=== PATIENT | female | born 1965 | race Caucasian/White ===

== ENCOUNTER → 2021-10-20 10:21 | Outpatient (BNVA) | payer MEDICARE, MEDICAID, SELFPAY | PROVIDERS: PCP Pediatrics; Visit Provider Student in an Organized Health Care Education/Training Program | DX: M79.7 Fibromyalgia (principal); M18.11 Unilateral primary osteoarthritis of first carpometacarpal joint, right hand | CPT/HCPCS: 99202 ==

== ENCOUNTER 2023-08-22 14:00 | Outpatient (AMB) | payer MEDICARE, MEDICAID, SELFPAY ==
--- NOTE | 2023-08-22 14:03 | A.OFFVIS_ITS ---
Vital Signs 08/22/23 14:17 Height 5 ft 6 in Weight 195 lb 5.273 oz BMI 31.5 BP 120/70 Blood Pressure Location Lt brachial Position Sitting Pulse 78 Pulse Source Pulse Oximeter Pulse Oximetry (%) 99 Oxygen Delivery Method Room Air Intake Visit Reasons: FM/CM Intake Note: Patient presents for FM/CM. Fibromyalgia is getting worst. Chronic headaches are constant. Shooting pains down my legs. I get vertigo sometimes Allergies oxycodone [From PERCOCET] Allergy (Unknown, Verified 08/22/23 14:13) UNKNOWN duloxetine [From Cymbalta] Adverse Reaction (Intermediate, Verified 08/22/23 14:13) Migraine pregabalin [From Lyrica] Adverse Reaction (Intermediate, Verified 08/22/23 14:13) Weight gain Medication List - Last Reconciled 08/22/23 by Luis Cardoza MD bupropion HCl XL (Wellbutrin XL) 150 mg PO bupropion HCl XL (Wellbutrin XL) 300 mg PO cholecalciferol (vitamin D3) (Vitamin D3) 50 mcg PO DAILY diazepam 5 mg PO DAILY diazepam 2 mg PO DAILY fluvoxamine 200 mg PO ONCE pregabalin 50 mg PO BEDTIME propranolol mg PO HPI Comments Details: 57-year-old female with fibromyalgia and osteoarthritis returns for follow-up. She states that her fibromyalgia is worse and she is frustrated with her condition. She needs to take pregabalin nightly. She takes 50 mg nightly which provides some relief, takes the edge off but it causes significant hunger. She even tried taking the 50 mg capsule and taking half of it and it still causes hunger and weight gain. She also had side effects with gabapentin and duloxetine. She requested Savella prescription from her psychiatrist and it was denied. Patient walks her dog daily. She has a therapist but does not feel the therapy is helpful. Initial history: 55-year-old female referred for evaluation of fibromyalgia. She was diagnosed about a year ago. She was started on Lyrica which gave her some relief but caused significant weight gain so it was stopped. She was also started on duloxetine which made her migraines worse. Also she was on gabapentin years ago for migraine which also caused weight gain. She has severe pain everywhere helped with Tylenol and sometimes ibuprofen. She has difficulty falling asleep and sometimes has restless legs. Both are helped with melatonin 3-6 mg at night. She has significant anxiety. Patient also has significant right hand CMC arthritis and fusion was recommended by hand surgeon. She also has bilateral knee pain worse with walking, she had right knee arthroscopic meniscal surgery and she was told she needs similar treatment on the left side as well. [facility] Medical History Essential hypertension Anorexia nervosa Fibromyalgia, primary Migraine Depression Surgical History H/O wrist surgery History of tonsillectomy and adenoidectomy H/O lateral meniscus repair of right knee Hx of hernia repair Hx of section History of back surgery Family History Mother Lupus Anxiety and depression Hypertension Father Congestive heart failure Social History Household Members: Children Alcohol intake: never Patient Tobacco Use Status: Never used Tobacco Current occupational status: disabled Female Reproductive History Menstrual Total pregnancies: 1 Full term: 1 Review of Systems Musc Reports myalgias and Reports arthralgias Physical Exam Vital Signs: Last Vital Signs Pulse 78 08/22/23 14:17 BP 120/70 08/22/23 14:17 Pulse Ox 99 08/22/23 14:17 Oxygen Delivery Method Room Air 08/22/23 14:17 BMI result Body Mass Index 31.5 Const General: cooperative and healthy appearing Nutritional Appearance: overweight Orientation/consciousness: patient oriented x3 HEENT Head: Yes normocephalic and Yes atraumatic Ears: hearing grossly normal bilaterally Mouth: Normal oral and palatal mucosa present and moist mucous membranes Resp Effort & Inspection: normal respiratory effort and able to speak in complete sentences Neuro General: patient oriented x3 Extrem Other: No active synovitis Diffuse fibromyalgia tender points Assessment & Plan Assessment & Plan (1) Fibromyalgia, primary: Code(s): M79.7 - Fibromyalgia Category: Medical Plan: 57-year-old female with fibromyalgia returns for follow-up. Upon evaluation I do not see any signs suggestive of an autoimmune rheumatic disease. I again outlined the general management strategies for fibromyalgia. Consider changing her therapist. Try to follow sleep hygiene practices. Patient had a home sleep study and a lab sleep study was suggested but patient not get a chance to go. Advised patient to get a sleep study to rule out PATRICK.Patient would benefit from increased physical activity, either through formal physical therapy or by joining a gym. Advised patient that she should start activity slowly and increase as tolerated. Consider low-impact exercises such as swimming, aqua therapy stretching, yoga. Patient had side effects with gabapentin and Cymbalta. She takes 50 mg of Lyri ca which helps keep the edge off but can not increase the dose due to significant her and weight gain Discuss with PCP or psychiatrist. Consider adding Savella Advised patient to look up mind your fibro podcast No need to follow up with me Plan I spent 30 minutes reviewing patient's chart, evaluating patient, counseling patient and documenting in the chart Coding Level of Care Code Est Pt Level 3 (53118) Diagnoses Fibromyalgia, primary M79.7
[2023-08-22 14:17] VITALS: BP 120/70; PULSE 78; O2SAT 99; BMI 31.5
== END 2023-08-22 14:47 | disposition home or self-care (01) ==
PROVIDERS: PCP Pediatrics; Visit Provider Student in an Organized Health Care Education/Training Program
DX: M79.7 Fibromyalgia (principal)
CPT/HCPCS: 99213

== ENCOUNTER → 2023-08-22 14:00 | Outpatient (BNVA) | payer MEDICARE, MEDICAID, SELFPAY | PROVIDERS: PCP Pediatrics; Visit Provider Student in an Organized Health Care Education/Training Program | DX: M79.7 Fibromyalgia (principal); Z79.899 Other long term (current) drug therapy | CPT/HCPCS: 99212 ==

== ENCOUNTER → 2024-06-24 11:02 | Outpatient (REF) | payer MEDICARE, MEDICAID, SELFPAY ==
--- OUTSIDE RECORDS SUMMARY | 2024-06-24 12:30 | XMS_ITS | Clinical Summary ---
Author Organization [facility] [address] [place] [address] [address] [place] [address] Phone Care Team Providers [employer] Name Role Phone Farzana Garrett MD Primary Care Provider [phone] Allergies Active Allergy Reactions Criticality Noted Date Comments Cephalexin Monohydrate 10/29/2012 unknown Chlorpromazine Hallucinations 12/31/2018 Taken for nausea Erythromycin 11/13/2012 unknown Oxycodone-Acetaminophen Dizziness 04/13/2022 Pollen Extracts 03/14/2011 Other Reaction(s): Runny Nose/Rhinitis Medications acetaminophen (TYLENOL 8 HOUR) 650 mg 8 hr tablet TAKE 1 TABLET BY MOUTH EVERY 8 HOURS NEEDED FOR PAIN 09/07/2023 Active atomoxetine (STRATTERA) 40 mg capsule Take 60 mg by mouth daily. Active buPROPion XL (WELLBUTRIN XL) 150 mg 24 hr tablet Take 150 mg by mouth every morning. Take along with a 300mg tab= 450mg daily Active buPROPion XL (WELLBUTRIN XL) 300 mg 24 hr tablet Take 300 mg by mouth every morning. Take along with 150mg tab = total 450mg Active cholecalciferol (VITAMIN D-3) 50 mcg (2,000 unit) tablet Take 1 Tablet by mouth daily. 06/05/2023 Active diazePAM (VALIUM) 2 mg tablet Take 2 Tablets by mouth 2 times daily as needed. Active diazePAM (VALIUM) 5 mg tablet Take 5 mg by mouth at bedtime. Active fluvoxaMINE 150 mg capsule,extende d release 24hr Take 1.3333 Capsules by mouth. Active ibuprofen (ADVIL,MOTRIN) 800 mg tablet TAKE 1 TABLET BY MOUTH EVERY 8 HOURS NEEDED FOR PAIN 08/14/2023 Active propranoloL (INDERAL) 80 mg tablet Take 1 Tablet by mouth 3 times daily. Active omeprazole (PriLOSEC) [address] capsule TAKE 1 CAPSULE BY MOUTH EVERY DAY 30 capsule 3 01/23/2024 Active Active Problems Problem Noted Date Diagnosed Date Dizziness 05/21/2024 Snoring 06/02/2022 Overview (12/04/2023): Sleep study neg. 06/04 Arthritis of carpometacarpal (CMC) joint of righ t thumb 01/24/2022 Fibromyalgia 03/25/2021 Dyspnea on exertion 03/16/2021 Tachycardia 03/16/2021 Vitamin D deficiency 02/25/2020 Brief psychotic disorder ([facility] V24, [facility] V 28) 06/26/2016 Essential hypertension 06/29/2011 Anxiety 03/14/2011 Depression 03/14/2011 Insomnia 03/14/2011 Migraine 03/14/2011 Encounters Date Type Department Care Team Description 06/11/2024 12:10 PM EDT - 06/11/2024 11:59 PM EDT Hospital Encounter [facility] MRI [address] [place] [address] Syncope and collapse Discharge Disposition: Home or Self Care 06/03/2024 Telephone Adult Medicine [facility] [address] [place] [phone] Delia Golden MA Fitting for DME 05/21/2024 1:30 PM EDT Office Visit Adult Medicine [facility] [address] [place] [phone] Lana Cruz NP Essential hypertension (Primary Dx); Dizziness from Last 3 Months Immunizations Name Administration Dates Next Due Hep B, Unspecified 01/12/2012 Influenza Quadravalent, MDCK , 0.5ml, preservative free (Flucelvax) 6mo and older 11/08/2021,10/29/2020,12/31/2018 Influenza Quadrivalent, 0.5m l, preservative free (Fluarix; FluLaval; Fluzone) ages 6mo and older (Afluria) 3yo and older 12/16/2019,02/19/2018,10/31/2016 Influenza trivalent, 0.5mL, preservative free (Fluarix; FluLaval; Fluzone) ages 6mo and older (Afluria) 3 years and older 02/14/2018,01/29/2015 Influenza, Unspecified 10/31/2016 Measles 01/12/2012 Mumps 01/12/2012 Pfizer SARS-CoV-2 COVID-19, mRNA, LNP-S, preservative free 07/02/2020,06/12/2020 Rubella 01/12/2012 Tdap Tetanus diptheria acell ular pertussis (Boostrix; Adacel) 7yo and older 01/11/2015,01/12/2012 Varicella live (Varivax) 12mo and older 01/12/20 12 Surgical History Surgery Date Site/Laterality Comments HERNIA REPAIR 2013 PROCEDURE: HISTORICAL HERNIA REPAIR/ELISHA SECTION 1999 PROCEDURE: HISTORICAL DELIVERY BACK SURGERY 2018 PROCEDURE: HISTORICAL BACK SURGERY; COMMENT: L5-S1 KNEE ARTHROSCOPY W/ MENISCAL REPAIR Right PROCEDURE: RI ARTHROSCOPY KNEE W/MENISCUS RPR MEDIAL/LATERAL TONSILLECTOMY ADENOIDECTOMY, BILATERAL MYRINGOTOMY AND TUBES PROCEDURE: RI TONSILLECTOMY & ADENOIDECTOMY <AGE 12 HERNIA REPAIR PROCEDURE: RI RPR 1ST INGUN HRNA AGE 6 MO-5 YRS REDUCIBLE Medical History Medical History Date Comments Anxiety 03/14/2011 DX:Anxiety Depressive disorder, not els ewhere classified 03/14/2011 DX:Depressive disorder, not elsewhere classified Migraine 03/14/2011 DX:Migraine Insomnia 03/14/2011 DX:Insomnia H/O: section 04/27/2011 DX:H/O: ce sarean section History of suicidal ideation 02/09/2017 DX: History of suicidal ideation S/P lumbar fusion 06/10/2018 DX:S/P lumbar fusion Esophageal reflux DX:Esophageal reflux Essential hypertension DX:Essent ial hypertension Urinary tract infection DX:Urina ry tract infection Family History Medical History Relation Name Comments Heart attack Father age 50s, hx CHF Arthritis Mother Depression Mother Hypertension Mother Other: lupus Mother Stroke Mother Heart attack Paternal Grandfather age 50s Arthritis Sister Relation Name Status Comments Father (Age 77) [place] Mother (Age 57) lupus Paternal Grandfather Sister Social History Tobacco Use Types Packs/Day Years Used Date Smoking Tobacco: Never Smokeless Tobacco: Never Tobacco Cessation:Counseling Given: Not Answered Alcohol Use Standard Drinks/Week Comments No 0 (1 standard drink = 0.6 oz pur e alcohol) Comments Unknown Sex and Gender Information Value Date Recorded Sex Assigned at Not on file Legal Sex Female 11:02 PM EST Gender Identity Not on file Sexual Orientation Not on file Obstetrics History Last Filed Vital Signs Vital Sign Reading Time Taken Comments Blood Pressure 128/79 05/21/2024 1:37 PM EDT Pulse 67 05/21/2024 1:37 PM EDT Temperature - - Respiratory Rate - - Oxygen Saturation - - Inhaled Oxygen Concentration - - Weight 78.2 kg (172 lb 6.4 oz) 05/21/2024 1:37 P M EDT Height 167.6 cm (5' 6 ) 05/21/2024 1:37 PM EDT Body Mass Index 27.83 05/21/2024 1:37 PM EDT Plan of Treatment Upcoming Encounters Date Type Department Care Team (Late st Contact Info) Description 07/15/2024 9:40 AM EDT Office Visit Endocrinology - [facility] [address] [place] [phone] Simin Steen PA [address] [place] [address] Health Maintenance Due Date Last Done Comments Hepatitis B Vaccines (2 of 3 - 19+ 3-dose series) 02/09/2012 01/12/2012 Pneumococcal Vaccine: 50+ Years (1 of 1 - PCV) 2016 Zoster Vaccines (1 of 2) 2016 01/12/2012 Colorectal Cancer Screening: Stool Based Tests (FOBT/FIT) 01/21/2022 Depression Screening 01/21/2022 Medicare Annual Wellness Visit 01/21/2022 Social Influencers of Health Screening 01/21/2022 DTaP,Tdap,and Td Vaccines (3 - Td or Tdap) 01/11/2025 01/11/2015, 01/12/2012 Breast Cancer Screening 02/23/2025 02/23/2023, 12/26 Hypertension/CHF/CAD Annual BMP Blood Test 05/21/2025 05/21/2024, 06/05/2023 Cholesterol Screening (Lipid Panel) 09/14/2026 09/14/2021 Cervical Cancer Screening: HPV 11/16/2027 11/15/2022 HIV Screening Completed 06/27/2011 Hepatitis C Screening Completed 06/27/2011 Varicella Vaccines Aged Out 01/12/2012 No longer eligible based on patient's age to complete this topic COVID-19 Vaccine Completed 01/30/2024, , 11/17/2021, Additional history exists Influenza Vaccine Completed 01/30/2024, , 11/08/2021, Additional history exists HIB Vaccines Aged Out No longer eligi ble based on patient's age to complete this topic HPV Vaccines Aged Out No longer eligi ble based on patient's age to complete this topic Hepatitis A Vaccines Aged Out No long er eligible based on patient's age to complete this topic IPV Vaccines Aged Out No longer eligi ble based on patient's age to complete this topic MMR Vaccines Aged Out No longer eligi ble based on patient's age to complete this topic Meningococcal ACWY Vaccine Aged Out N o longer eligible based on patient's age to complete this topic Meningococcal B Vaccine Aged Out No l onger eligible based on patient's age to complete this topic Pneumococcal Vaccine: Pediatrics (0 to 5 Years) and At-Risk Patients (6 to 64 Years) Aged Out No longer eligible based on patient's age to complete this topic RSV Immunization Patients Under 20 months Aged Out No longer eligible based on patient's age to complete this topic Procedures Procedure Name Priority Date/Time Associated Diagnosis Comments MR BRAIN WO CONTRAST Routine 06/11/2024 1:06 PM EDT Syncope and collapse CBC WITH AUTO DIFFERENTIAL Routine 05/21/2024 12:58 PM EDT Syncope and collapse COMPREHENSIVE METABOLIC PANEL Routine 05/21/2024 12:58 PM EDT Syncope and collapse CBC AND DIFFERENTIAL Routine 05/21/2024 12:58 PM EDT Syncope and collapse THYROID STIMULATING HORMONE WITH REFLEX TO FREE T4 AND FREE T3 Routine 05/21/2024 12:58 PM EDT Syncope and collapse SCREENING MAMMOGRAPHY BI 2-VIEW BREAST INC CAD Routine 02/23/2023 10:30 AM EST Encounter for other screening for malignant neoplasm of breast HPV Routine 11/15/2022 LIPID PANEL Routine 09/14/2021 HEPATITIS C SCREENING Routine 06/27/2011 HIV SCREENING Routine 06/27/2011 from Last 3 Months or Most Recently Relevant to Health Maintenance Results * MR Brain wo Contrast (06/11/2024 1:06 PM EDT) Anatomical Region Laterality Modality Head and Neck Magnetic Resonan ce 06/11/2024 1:45 PM EDT Impressions 06/11/2024 2:00 PM EDT No acute findings. ??Stable exam compared to 2023. -------- FINAL REPORT -------- Dictated By: CONOR QUINTERO Dictated Date: 06/11/2024 13:45 ET Assigned Physician: CONOR QUINTERO Reviewed and Electronically Signed By: CONOR QUINTERO Signed Date: 06/11/2024 14:00 ET Workstation ID: [id number] Transcribed By: Self Edit Transcribed Date: 06/11/2024 13:45 ET Narrative 06/11/2024 2:00 PM EDT PROCEDURE: Brain MRI INDICATION: Syncope TECHNIQUE: Multiplanar, multisequence MRI of the brain Without contrast. COMPARISON: ??04/26/2023. FINDINGS: No acute infarct, mass effect, or intracranial hemorrhage. Mild nonspecific T2 hyperintense foci throughout the supratentorial and pontine white matter are stable compared to prior and likely related to chronic small vessel ischemic change. Sella and foramen magnum are normal. ??No abnormal intracranial susceptibility artifact. Ventricles, sulci, and cisterns are normal in size and configuration. ??No hydrocephalus. Major intracranial arterial flow voids are normal. Sinuses and mastoid air cells are clear. Orbits and extracranial soft tissues are normal. ??Calvarium is normal. Procedure Note Conor Quintero MD - 06/11/2024 PROCEDURE: Brain MRI INDICATION: Syncope TECHNIQUE: Multiplanar, multisequence MRI of the brain Without contrast. COMPARISON: 04/26/2023. FINDINGS: No acute infarct, mass effect, or intracranial hemorrhage. Mild nonspecific T2 hyperintense foci throughout the supratentorial andpontine white matter are stable compared to prior and likely related tochronic small vessel ischemic change. Sella and foramen magnum are normal. No abnormal intracranialsusceptibility artifact. Ventricles, sulci, and cisterns are normal in size and configuration. Nohydrocephalus. Major intracranial arterial flow voids are normal. Sinuses and mastoid air cells are clear. Orbits and extracranial soft tissues are normal. Calvarium is normal. IMPRESSION: No acute findings. Stable exam compared to 2023. -------- FINAL REPORT -------- Dictated By: CONOR QUINTERO Dictated Date: 06/11/2024 13:45 ET Assigned Physician: CONOR QUINTERO Reviewed and Electronically Signed By: CONOR QUINTERO Signed Date: 06/11/2024 14:00 ET Workstation ID: [id number] Transcribed By: Self Edit Transcribed Date: 06/11/2024 13:45 ET Tana Woodward NP IMG MRI PROCEDURES Final Result * Thyroid stimulating hormone with reflex to free t4 and free t3 (05/21/2024 12:58 PM EDT) TSH 3.07 0.40 - 4.00 mcIU/mL LAB CHEMISTRY METHOD 05/22/2024 4:[address] [facility] Blood Venous blood specimen / Unknown Venipuncture / Unknown 05/21/2024 12:58 PM EDT 05/21/2024 12:58 PM EDT Tana Woodward NP LAB BLOOD ORDERABLES Ludmila l Result [facility] [address] [place] [address], * CBC auto differential (05/21/2024 12:58 PM EDT) [facility] WBC 6.4 4.8 - 10.8 K/mcL LAB HEMETOLOGY METHOD 05/21/2024 2:[address] [facility] RBC 4.40 3.80 - 4.80 M/mcL LAB HEMETOLOGY METHOD 05/21/2024 2:[address] [facility] Hemoglobin 13.4 11.5 - 16.0 g/dL LAB HEMETOLOGY METHOD 05/21/2024 2:[address] [facility] Hematocrit 40.7 35.0 - 47.0 % LAB HEMETOLOGY METHOD [facility]24 [facility] MCV 91.9 79.0 - 98.0 FL LAB HEMETOLOGY METHOD 05/21/2024 2:[address] [facility] MCH 30.2 27.0 - 32.0 pcg LAB HEMETOLOGY METHOD 05/21/2024 2:[facility] MCHC 32.9 32.0 - 37.0 g/dL LAB HEMETOLOGY METHOD 05/21/2024 2:[address] [facility] RDW 12.2 11.0 - 15.0 % LAB HEMETOLOGY METHOD 05/21/2024 2:[address] [facility] Platelets 324 130 - 400 K/mcL LAB HEMETOLOGY METHOD 05/21/2024 2:[address] [facility] MPV 10.5 7.0 - 11.0 FL LAB HEMETOLOGY METHOD 05/21/2024 2:[address] [facility] NRBC 0.0 <1.0 % LAB HEMETOLOGY METHOD 05/21/2024 2:[address] [facility] NRBC Absolute 0.00 <0.10 K/mcL LAB HEMETOLOGY METHOD 05/21/2024 2:[address] [facility] Neutrophils Relative 52.5 % LAB HEMETOLOGY METHOD 05/21/2024 2:[facility] Lymphocytes Relative 31.9 % LAB HEMETOLOGY METHOD 05/21/2024 2:[facility] Monocytes Relative 9.5 % LAB HEMETOLOGY METHOD 05/21/2024 2:[facility] Eosinophils Relative 5.3 % LAB HEMETOLOGY METHOD 05/21/2024 2:[address] [facility] Basophils Relative 0.6 % LAB HEMETOLOGY METHOD 05/21/2024 2:[address] [facility] Immature Granulocytes Relative 0.2 % LAB HEMETOLOGY METHOD 05/21/2024 2:[address] [facility] Neutrophils Absolute 3.36 1.50 - 7.00 K/mcL LAB HEMETOLOGY METHOD 05/21/2024 2:[address] [facility] Lymphocytes Absolute 2.04 1.00 - 5.00 K/mcL LAB HEMETOLOGY METHOD 05/21/2024 2:[address] [facility] Monocytes Absolute 0.61 0.20 - 1.00 K/mcL LAB HEMETOLOGY METHOD 05/21/2024 2:[facility] Eosinophils Absolute 0.34 0.00 - 0.50 K/mcL LAB HEMETOLOGY METHOD 05/21/2024 2:[address] [facility] Basophils Absolute 0.04 0.00 - 0.20 K/mcL LAB HEMETOLOGY METHOD 05/21/2024 2:[facility] Immature Granulocytes Absolute 0.01 0.00 - 0.03 K/mcL LAB HEMETOLOGY METHOD 05/21/2024 2:[address] [facility] Blood Venous blood specimen / Unknown Venipuncture / Unknown 05/21/2024 12:58 PM EDT 05/21/2024 12:58 PM EDT us Tana Woodward NP LAB BLOOD ORDERABLES Ludmila l Result [facility] [address] [place] [address], [place] [phone] * (ABNORMAL) Comprehensive metabolic panel (05/21/2024 12:58 PM EDT) Sodium 137 133 - 145 mmol/L LAB CHEMISTRY METHOD 05/21/2024 4:[address] [facility] Potassium 5.8(H) 3.5 - 5.5 mmol/L LAB CHEMISTRY METHOD 05/21/2024 4:[address] [facility] Chloride 103 96 - 110 mmol/L LAB CHEMISTRY METHOD 05/21/2024 4:[address] [facility] CO2 29 21 - 32 mmol/L LAB CHEMISTRY METHOD 05/21/2024 4:[address] [facility] Anion Gap 5 3 - 11 LAB CHEMISTRY METHOD 05/21/2024 4:[address] [facility] Glucose 76 70 - 100 mg/dL LAB CHEMISTRY METHOD 05/21/2024 4:[address] [facility] BUN 19 5 - 25 mg/dL LAB CHEMISTRY METHOD 05/21/2024 4:[address] [facility] Creatinine 1.10 0.50 - 1.10 mg/dL LAB CHEMISTRY METHOD 05/21/2024 4:[address] [facility] eGFR 59(L) >=60 mL/min/1. 73m2 LAB CHEMISTRY METHOD 05/21/2024 4:[address] [facility] Comment:Calculation based on the??Chronic Kidney Disease Epidemiology Collaboration (CKD-EPI) equation refit??without adjustment for race. BUN/Creatinine Ratio 17.3 LAB CHEMISTRY METHOD 05/21/2024 4:[address] [facility] Calcium 9.7 8.5 - 10.5 mg/dL LAB CHEMISTRY METHOD 05/21/2024 4:[address] [facility] AST (SGOT) 22 10 - 42 unit/L LAB CHEMISTRY METHOD 05/21/2024 4:[address] [facility] ALT (SGPT) 33 10 - 60 unit/L LAB CHEMISTRY METHOD 05/21/2024 4:[address] [facility] Alkaline Phosphatase 95 42 - 121 unit/L LAB CHEMISTRY METHOD 05/21/2024 4:[address] [facility] Total Protein 7.7 6.0 - 8.0 g/dL LAB CHEMISTRY METHOD 05/21/2024 4:[address] [facility] Albumin 3.9 3.2 - 5.0 g/dL LAB CHEMISTRY METHOD 05/21/2024 4:[address] [facility] Total Bilirubin 0.3 0.0 - 1.4 mg/dL LAB CHEMISTRY METHOD 05/21/2024 4:[address] [facility] Blood Venous blood specimen / Unknown Venipuncture / Unknown 05/21/2024 12:58 PM EDT 05/21/2024 12:58 PM EDT us Tana Woodward NP LAB BLOOD ORDERABLES Ludmila landa Result [facility] [address] [place] [address], * SCREENING MAMMOGRAPHY BI 2-VIEW BREAST INC CAD (02/23/2023 10:30 AM EST) Anatomical Region Laterality Modality Radiographic Laurita ging 11/15/2022 4:25 PM EDT Narrative 02/23/2023 11:02 AM EST This is a summary report. The complete report is available in the patient's medical record. If you cannot access the medical record, please contact the sending organization for a detailed fax or copy. Full field digital screening tomosynthesis mammography, reviewed with CAD and compared to previous mammograms dating back to 07/12/2011 with most recent of 12/26/2017. The breasts are composed of fatty and fibroglandular tissue. ??No suspicious mass, architectural distortion or suspicious calcifications are identified. IMPRESSION: : No mammographic evidence of malignancy. BIRADS 1-Negative; N. 5 year breast cancer risk assessment N/A Lifetime breast cancer risk assessment N/A Breast cancer risk category Breast cancer risk not assessed Procedure Note Verna Marie MD - 10/01/2023 This is a summary report. The complete report is available in thepatient's medical record. If you cannot access the medical record, pleasecontact the sending organization for a detailed fax or copy. Full field digital screening tomosynthesis mammography, reviewed with CADand compared to previous mammograms dating back to 07/12/2011 with mostrecent of 12/26/2017. The breasts are composed of fatty and fibroglandulartissue. No suspicious mass, architectural distortion or suspiciouscalcifications are identified. IMPRESSION: : No mammographic evidence of malignancy. BIRADS 1-Negative; N. 5 year breast cancer risk assessment N/A Lifetime breast cancer risk assessment N/A Breast cancer risk category Breast cancer risk not assessed Latoya Little DO IMG XR PROCEDURES Final Resul t * Cervical Cancer Screening: HPV (11/15/2022) Pathologist [facility] Cervical Cancer Screening: HPV Negative, Abstracted Historical Provider HEALTH MAINTENANCE Final Result * (ABNORMAL) Lipid panel (09/14/2021) LDL/HDL Ratio 4 0 - 4 Triglycerides 114 0 - 150 mg/dL Cholesterol 219(A) 0 - 200 mg/dL HDL 57 >=40 mg/dL LDL Cholesterol 140(A) 0 - 100 mg/dL Blood Venous blood specimen / Unknown Historical Provider LAB BLOOD ORDERABLES Ludmila l Result * HIV Screening (06/27/2011) HIV Screening Abstracted Historical Provider HEALTH MAINTENANCE Final Result * Hepatitis C Screening (06/27/2011) Hepatitis C Screening Abstracted Historical Provider HEALTH MAINTENANCE Final Result from Last 3 Months or Most Recently Relevant to Health Maintenance Insurance MEDICARE [place]ICAID - [place] Care Teams [employer] Relationship Specialty Start Date End Date Farzana Garrett MD [address] [place] [phone] PCP - General Internal Medicine 10/25/20
== END ==
LOC: HO.CARD 11:02
PROVIDERS: PCP Pediatrics; Visit Provider Registered Nurse
DX: R55 Syncope and collapse (principal)
CPT/HCPCS: 93225

== ENCOUNTER 2024-09-15 09:51 | Outpatient (AMB) | payer MEDICARE, MEDICAID, SELFPAY ==
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
--- OUTSIDE RECORDS SUMMARY | 2024-09-15 10:27 | XMS_ITS | Clinical Summary ---
Author Organization [facility] [address] [place] [address] [address] [place] [address] Phone Care Team Providers Care Sharepoint Admin Name Role Phone Farzana Garrett MD Primary Care Provider [phone] Allergies Active Allergy Reactions Criticality Noted Date [...] Vitamin D deficiency 02/25/2020 Brief psychotic disorder ([facility] V24, [facility] V 28) 06/26/2016 Essential hypertension 06/29/2011 Anxiety 03/14/2011 Depression 03/14/2011 Insomnia 03/14/2011 Migraine 03/14/2011 Encounters Date Type Department Care Team Description 08/11/2024 Telephone Adult Medicine [facility] [address] [place] [address] Delia Golden MA Fitting for DME from Last 3 Months Immunizations Name Administration [...] Influenza, Unspecified 10/31/2016 Measles 01/12/2012 Mumps 01/12/2012 [facility] SARS-CoV-2 COVID-19, mRNA, LNP-S, preservative free 07/02/2020,06/12/2020 Rubella 01/12/2012 Tdap Tetanus diptheria acell ular pertussis (Boostrix; Adacel) 7yo and older 01/11/2015,01/12/2012 Varicella live (Varivax) 12mo and older 01/12/20 12 Surgical History Surgery Date Site/Laterality Comments HERNIA REPAIR 2013 PROCEDURE: HISTORICAL HERNIA REPAIR/ELISHA SECTION 1999 PROCEDURE: HISTORICAL DELIVERY BACK SURGERY 2018 PROCEDURE: HISTORICAL BACK SURGERY; COMMENT: L5-S1 KNEE ARTHROSCOPY W/ MENISCAL REPAIR Right PROCEDURE: SC ARTHROSCOPY KNEE W/MENISCUS RPR MEDIAL/LATERAL TONSILLECTOMY ADENOIDECTOMY, BILATERAL MYRINGOTOMY AND TUBES PROCEDURE: SC TONSILLECTOMY & ADENOIDECTOMY <AGE 13 HERNIA REPAIR PROCEDURE: SC RPR 1ST INGUN HRNA AGE 7 MO-5 [...] Relation Name Status Comments Father (Age 77) [place] Mother (Age 57) lupus Paternal Grandfather Sister [...] Care Team (Late st Contact Info) Description 01/27/2025 1:00 PM EST Office Visit Endocrinology - [place] [address] [place] [address] Simin Steen PA [address] [place] [address] Health Maintenance Due Date Last Done Comments Hepatitis B Vaccines (2 of 3 - 19+ 3-dose series) 02/09/2012 01/12/2012 Pneumococcal Vaccine: 50+ Years (1 of 1 - PCV) 2016 Zoster Vaccines (1 of 2) 2016 01/12/2012 Colorectal Cancer Screening: Stool Based Tests (FOBT/FIT) 01/21/2022 Medicare Annual Wellness Visit 01/21/2022 Social Influencers of Health Screening 01/21/2022 Depression Screening 02/13/2024 Influenza Vaccine (#1) 2024 , 03/04/2023, 11/08/2021, Additional history exists DTaP,Tdap,and Td Vaccines (3 - Td or Tdap) 01/11/2025 01/11/2015, 01/12/2012 Breast Cancer Screening 02/23/2025 02/23/2023, 12/26 Hypertension/CHF/CAD Annual BMP Blood Test 08/07/2025 08/07/2024, 05/21/2024, 06/05/2023 Cholesterol Screening (Lipid Panel) 09/14/2026 09/14/2021 Cervical Cancer Screening: HPV 11/16/2027 11/15/2022 HIV Screening Completed 06/27/2011 Hepatitis C Screening Completed 06/27/2011 Varicella Vaccines Aged Out 01/12/2012 No longer eligible based on patient's age to complete this topic COVID-19 Vaccine Completed 01/30/2024, , 11/17/2021, Additional history exists HIB Vaccines Aged Out [...] Procedure Name Priority Date/Time Associated Diagnosis Comments COMPREHENSIVE METABOLIC PANEL Routine 08/07/2024 3:26 PM EDT Syncope and collapse SCREENING MAMMOGRAPHY BI 2-VIEW BREAST INC CAD Routine 02/23/2023 10:30 AM EST Encounter for other screening for malignant neoplasm of breast HPV Routine 11/15/2022 LIPID PANEL Routine 09/14/2021 HEPATITIS C SCREENING Routine 06/27/2011 HIV SCREENING Routine 06/27/2011 from Last 3 Months or Most Recently Relevant to Health Maintenance Results * (ABNORMAL) Comprehensive metabolic panel (08/07/2024 3:26 PM EDT) Sodium 132(L) 133 - 145 mmol/L LAB CHEMISTRY METHOD 08/07/2024 6:16 PM EDT [facility] Potassium 4.7 3.5 - 5.5 mmol/L LAB CHEMISTRY METHOD 08/07/2024 6:16 PM EDT [facility] Chloride 100 96 - 110 mmol/L LAB CHEMISTRY METHOD 08/07/2024 6:16 PM [facility] CO2 28 21 - 32 mmol/L LAB CHEMISTRY METHOD 08/07/2024 6:16 PM [facility] Anion Gap 4 3 - 11 LAB CHEMISTRY METHOD 08/07/2024 6:16 PM [facility] Glucose 63(L) 70 - 100 mg/dL LAB CHEMISTRY METHOD 08/07/2024 6:16 PM [facility] BUN 26(H) 5 - 25 mg/dL LAB CHEMISTRY METHOD 08/07/2024 6:16 PM [facility] Creatinine 1.01 0.50 - 1.10 mg/dL LAB CHEMISTRY METHOD 08/07/2024 6:16 PM [facility] eGFR 65 >=60 mL/min/1. 73m2 LAB CHEMISTRY METHOD 08/07/2024 6:16 PM [facility] Comment:Calculation based on the Chronic Kidney Disease Epidemiology Collaboration (CKD-EPI) equation refit without adjustment for race. BUN/Creatinine Ratio 25.7 LAB CHEMISTRY METHOD 08/07/2024 6:16 PM [facility] Calcium 9.1 8.5 - 10.5 mg/dL LAB CHEMISTRY METHOD 08/07/2024 6:16 PM [facility] AST (SGOT) 17 10 - 42 unit/L LAB CHEMISTRY METHOD 08/07/2024 6:16 PM [facility] ALT (SGPT) 32 10 - 60 unit/L LAB CHEMISTRY METHOD 08/07/2024 6:16 PM [facility] Alkaline Phosphatase 95 42 - 121 unit/L LAB CHEMISTRY METHOD 08/07/2024 6:16 PM [facility] Total Protein 7.2 6.0 - 8.0 g/dL LAB CHEMISTRY METHOD 08/07/2024 6:16 PM [facility] Albumin 3.8 3.2 - 5.0 g/dL LAB CHEMISTRY METHOD 08/07/2024 6:16 PM EDT [facility] Total Bilirubin 0.3 0.0 - 1.4 mg/dL LAB CHEMISTRY METHOD 08/07/2024 6:16 PM EDT [facility] Blood Venous blood specimen / Unknown Venipuncture / Unknown 08/07/2024 3:26 PM EDT 08/07/2024 3:26 PM EDT Tana Woodward NP LAB BLOOD ORDERABLES Ludmila landa Result [facility] [address] [place] [address], [place] [phone] * SCREENING MAMMOGRAPHY BI 2-VIEW BREAST INC [...] are composed of fatty and fibroglandular tissue. No suspicious mass, architectural distortion or suspicious calcifications [...] risk category Breast cancer risk not assessed Result [facility] Latoya Little DO IMG XR PROCEDURES Final Resul t * Cervical Cancer Screening: HPV (11/15/2022) [facility] Cervical Cancer Screening: HPV Negative, Abstracted Result [facility] Provider HEALTH MAINTENANCE Final Result * (ABNORMAL) Lipid panel (09/14/2021) [facility] LDL/HDL Ratio 4 0 - 4 Triglycerides 114 0 - 150 mg/dL Cholesterol 219(A) 0 - 200 mg/dL HDL 57 >=40 mg/dL LDL Cholesterol 140(A) 0 - 100 mg/dL Blood Venous blood specimen / Unknown Result [facility] Provider LAB BLOOD ORDERABLES Ludmila l Result * HIV Screening (06/27/2011) [facility] HIV Screening Abstracted Result [facility] Provider HEALTH MAINTENANCE Final Result * Hepatitis C Screening (06/27/2011) [facility] Hepatitis C Screening Abstracted Result [facility] Provider HEALTH MAINTENANCE Final Result from Last 3 Months or Most Recently Relevant to Health Maintenance Insurance MEDIC[place] Care Teams Sharepoint Admin Relationship Specialty Start Date End Date Farzana Garrett MD [address] [place] [id number] PCP - General Internal Medicine 10/25/20
--- OUTSIDE RECORDS SUMMARY | 2024-09-15 10:27 | XMS_ITS | Patient Health Record ---
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 Wafer Name Role Phone Charlotte Teresa Jacobson Primary Care Provider Un available Allergies Allergen (clinical drug ingredient) Drug/Non Drug Allergy documented on EMR Reaction Allergy Type Onset Date Status erythromycin Erythromycin Unknown Drug Allergy A ctive Keflex Unknown Drug Allergy Active Reason For Referral No Information Medications Medication SIG (Take, Route, Frequency, Duration) Notes Start Date End Date Status HYDROcodone-Acetaminophen 5-325 MG 1 tablet as needed Orally BID; Duration: 30 days 09/19/2019 Active diazePAM 5 MG Orally Once a day Active Wellbutrin po Active Ibuprofen 800 MG 1 tablet with food o r milk as needed Orally Three times a day; Duration: 30 Active Strattera 60 MG 1 capsule Orally Onc e a day Active Tylenol 1 tab Oral Active Motrin 2-3 every day Active traMADol HCl 50 MG 1-2 tabs Orally TID; Duration: 30 days 08/05/2019 Active Methocarbamol 750 MG 1 tablet Orally collin ry 8 hrs; Duration: 30 day(s) 07/28/2019 Active Robaxin Active Social History Tobacco Use: Social History Observation Description Date Details (start date - stop date) Never Smoker NA - NA Tobacco Use/Smoking Question Answer Notes Are you a nonsmoker Problems Problem Type SNOMED Code ICD Code Onset Dates Problem Status W/U Status Risk Notes Problem Lumbosacral spondylosis without myelopathy (47642389) Spondylosis without myelopathy or radiculopathy, lumbar region (M47.816) Active confirmed Plan Of Treatment No Information Insurance Providers Payer Name Payer Address Payer Phone Subscriber Number Group Number Insured Name Patient Relationship to Insured Coverage Start Date Coverage End Date [place] [address] [place] [address] [phone] [id number] NOMAN TANNER Self - patient is the insured [employer] of [facility] [address] [place] [address] [phone] [id number] NOMAN TANNER Self - patient is the insured Medical (General) History Medical History History ICD Code Allergic to Walnuts Anxiety Depression left knee pain Joint Pain Neck Pain Migraines( Patient take Murina Con trol for her Chronic Migraines) Surgical History Surgery Date(Month/Year) Cesarian section Hernia Repair x2 Right knee torn menicus 2014 fusion of Vertabrae May
== END 2024-09-15 11:16 | disposition home or self-care (01) ==
PROVIDERS: PCP Pediatrics; Visit Provider Registered Nurse
DX: G43.909 Migraine, unspecified, not intractable, without status migrainosus (principal); M79.7 Fibromyalgia; R90.82 White matter disease, unspecified; R25.1 Tremor, unspecified; R55 Syncope and collapse; G47.00 Insomnia, unspecified; R42 Dizziness and giddiness; H93.19 Tinnitus, unspecified ear; F41.9 Anxiety disorder, unspecified
CPT/HCPCS: 99214

== ENCOUNTER 2024-09-15 09:51 | Outpatient (REF) | payer MEDICARE, MEDICAID, SELFPAY ==
[2024-09-15 11:43] LABS: MANUAL DIFF FLAG NO
[2024-09-15 12:15] LABS: Hematocrit 39.6 % (37.0-47.0); Hemoglobin 13.5 g/dl (12.0-16.0); Imm Gran Abs Auto 0.02 X10*3/uL (0.00-0.03); Imm Gran Pct Auto 0.3 % (0.0-0.4); Lymphocytes Absolute Auto 2.5 X10*3/uL (1.2-4.9); Mean Corpuscular HGB Conc 34.1 g/dl (31.0-35.0); Mean Corpuscular Hemoglobin 30.4 pg (27.0-33.0); Mean Corpuscular Volume 89.2 fL (80.0-98.0); NRBC Abs Auto 0.000 X10*3/uL (0.0-0.012); NRBC Pct Auto 0.0 /100WBC (0.0-0.2); Platelet Count 347 X10*3/uL (160-400); Red Blood Count 4.44 X10*6/uL (4.20-5.50); White Blood Count 6.8 X10*3/uL (4.8-10.8)
[2024-09-16 15:08] LABS: Lyme Abs Screen <0.90 index
== END 2024-09-15 09:52 | disposition home or self-care (01) ==
LOC: HO.LAB 09:51
PROVIDERS: Absent Provider Registered Nurse; PCP Pediatrics; Visit Provider Psychiatry & Neurology Neurology
DX: G43.909 Migraine, unspecified, not intractable, without status migrainosus (principal); M79.7 Fibromyalgia; R90.82 White matter disease, unspecified; R25.1 Tremor, unspecified; R55 Syncope and collapse; G47.00 Insomnia, unspecified; H93.13 Tinnitus, bilateral; F41.9 Anxiety disorder, unspecified; R42 Dizziness and giddiness; Z01.84 Encounter for antibody response examination
CPT/HCPCS: 36415; 85025; 85652; 86140; 86617; 86618; 99212

== ENCOUNTER 2024-12-17 10:08 | Outpatient (AMB) | payer MEDICARE, MEDICAID, SELFPAY ==
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
--- OUTSIDE RECORDS SUMMARY | 2024-12-17 11:40 | XMS_ITS | Patient Health Record ---
Author Organization [facility] tional Pain Address [address] [place] [id number] Care Team Providers Care Clinical Nursing Coordinator Name Role Phone [place] Teresa Jacobson Primary Care Provider Un available Allergies Allergen (clinical drug ingredient) Drug/Non Drug Allergy documented on EMR Reaction Allergy Type Onset Date Status erythromycin Erythromycin Unknown Drug Allergy A ctive Keflex Unknown Drug Allergy Active Reason For Referral No Information Medications Medication SIG (Take, Route, Frequency, Duration) Notes Start Date End Date Status HYDROcodone-Acetaminophen 5-325 MG Tablet 1 tablet as needed Orally BID; Duration: 30 days 09/19/2019 Active diazePAM 5 MG Tablet Orally Once a day Active Wellbutrin 450mg po Act marc Ibuprofen 800 MG Tablet 1 tablet with fo od or milk as needed Orally Three times a day; Duration: 30 Active Strattera 60 MG Capsule 1 capsule Orally Once a day Active Tylenol 650mg 1 tab Oral Activ e Motrin 600mg 2-3 every day Act marc traMADol HCl 50 MG Tablet 1-2 tabs Orall y TID; Duration: 30 days 08/05/2019 Active Methocarbamol 750 MG Tablet 1 tablet Ora lly every 8 hrs; Duration: 30 day(s) 07/28/2019 Active Robaxin 750mg Active Social History Tobacco Use: Social History Observation Description Date Details (start date - stop date) Never Smoker NA - NA Social History Tobacco Use: Social Info Question Answer Notes Tobacco Use/Smoking Are you a nonsmoker Problems Problem Type SNOMED Code ICD Code Onset Dates Problem Status W/U Status Risk Notes Problem Lumbosacral spondylosis without myelopathy ([id number]) Spondylosis without myelopathy or radiculopathy, lumbar region (M47.816) Active confirmed Plan Of Treatment No Information Insurance Providers Payer Name Payer Address Payer Phone Subscriber Number Group Number Insured Name Patient Relationship to Insured Coverage Start Date Coverage End Date Medicare B [facility] [address] [place] [phone] [id number] NOMAN TANNER Self - patient is the insured [employer] [place] [address] [place] [phone] [id number] NOMAN TANNER Self - patient is the insured Medical (General) History Medical History History ICD Code Allergic to Walnuts Anxiety Depression left knee pain Joint Pain Neck Pain Migraines( Patient take Murina Con trol for her Chronic Migraines) Surgical History Surgery Date(Month/Year) Cesarian section Hernia Repair x2 Right knee torn menicus 2014 fusion of Vertabrae May
--- OUTSIDE RECORDS SUMMARY | 2024-12-17 11:40 | XMS_ITS | Clinical Summary ---
Author Organization [facility] [address] [place] [address] [address] [place] [address] Phone Care Team Providers Care Elementary Educator Name Role Phone Farzana Garrett MD Primary Care Provider [phone] Allergies Active Allergy Reactions Criticality Noted Date [...] Vitamin D deficiency 02/25/2020 Brief psychotic disorder ([facility] V24, [facility] V 28) 06/26/2016 Essential hypertension 06/29/2011 Anxiety 03/14/2011 Depression 03/14/2011 Insomnia 03/14/2011 Migraine 03/14/2011 Immunizations Immunization Administration Dates Next Due Hep B, Unspecified 01/12/2012 Influenza Quadravalent, MDCK , 0.5ml, preservative free (Flucelvax) 6mo and older 11/08/2021,10/29/2020,12/31/2018 Influenza Quadrivalent, 0.5m l, preservative free (Fluarix; FluLaval; Fluzone) ages 6mo and older (Afluria) 3yo and older 12/16/2019,02/19/2018,10/31/2016 Influenza trivalent, 0.5mL, preservative free (Fluarix; FluLaval; Fluzone) ages 6mo and older (Afluria) 3 years and older 02/14/2018,01/29/2015 Influenza, Unspecified 10/31/2016 Measles 01/12/2012 Mumps 01/12/2012 atokore SARS-CoV-2 COVID-19, mRNA, LNP-S, preservative free 07/02/2020,06/12/2020 Rubella 01/12/2012 Tdap Tetanus diptheria acell ular pertussis (Boostrix; Adacel) 7yo and older 01/11/2015,01/12/2012 Varicella live (Varivax) 12mo and older 01/12/20 12 Surgical History Surgery Date Site/Laterality Comments HERNIA REPAIR 2013 PROCEDURE: HISTORICAL HERNIA REPAIR/ELISHA SECTION 1999 PROCEDURE: HISTORICAL DELIVERY BACK SURGERY 2018 PROCEDURE: HISTORICAL BACK SURGERY; COMMENT: L5-S1 KNEE ARTHROSCOPY W/ MENISCAL REPAIR Right PROCEDURE: SD ARTHROSCOPY KNEE W/MENISCUS RPR MEDIAL/LATERAL TONSILLECTOMY ADENOIDECTOMY, BILATERAL MYRINGOTOMY AND TUBES PROCEDURE: SD TONSILLECTOMY & ADENOIDECTOMY <AGE 12 HERNIA REPAIR PROCEDURE: SD RPR 1ST INGUN HRNA AGE 6 MO-5 [...] Relation Name Status Comments Father (Age 77) MD Mother (Age 57) lupus Paternal Grandfather Sister [...] 1:00 PM EST Office Visit Endocrinology - [place] [address] [place] [phone] Simin Steen PA [address] [place] [address] Health Maintenance Due Date Last Done Comments [...] 09/14/2021 Cervical Cancer Screening: HPV 11/16/2027 11/15/2022 RSV Immunization Adult Patients (1 - 1-dose 75+ series) 2041 HIV Screening Completed 06/27/2011 Hepatitis C Screening [...] LAB CHEMISTRY METHOD 08/07/2024 6:16 PM EDT [facility] Potassium 4.7 3.5 - 5.5 mmol/L LAB CHEMISTRY METHOD 08/07/2024 6:16 PM EDT [facility] Chloride 100 96 - 110 mmol/L LAB CHEMISTRY METHOD 08/07/2024 6:16 PM EDT [facility] CO2 28 21 - 32 mmol/L LAB CHEMISTRY METHOD 08/07/2024 6:16 PM [facility] Anion Gap 4 3 - 11 LAB CHEMISTRY METHOD 08/07/2024 6:16 PM [facility] Glucose 63(L) 70 - 100 mg/dL LAB CHEMISTRY METHOD 08/07/2024 6:16 PM [facility] BUN 26(H) 5 - 25 mg/dL LAB CHEMISTRY METHOD 08/07/2024 6:16 PM [facility] Creatinine 1.01 0.50 - 1.10 mg/dL LAB CHEMISTRY METHOD 08/07/2024 6:16 PM [facility] eGFR 65 >=60 mL/min/1. 73m2 LAB CHEMISTRY METHOD 08/07/2024 6:16 PM [facility] Comment:Calculation based on the Chronic Kidney Disease Epidemiology Collaboration (CKD-EPI) equation refit without adjustment for race. BUN/Creatinine Ratio 25.7 LAB CHEMISTRY METHOD 08/07/2024 6:16 PM [facility] Calcium 9.1 8.5 - 10.5 mg/dL LAB CHEMISTRY METHOD 08/07/2024 6:16 PM [facility] AST (SGOT) 17 10 - 42 unit/L LAB CHEMISTRY METHOD 08/07/2024 6:16 PM [facility] ALT (SGPT) 32 10 - 60 unit/L LAB CHEMISTRY METHOD 08/07/2024 6:16 PM [facility] Alkaline Phosphatase 95 42 - 121 unit/L LAB CHEMISTRY METHOD 08/07/2024 6:16 PM [facility] Total Protein 7.2 6.0 - 8.0 g/dL LAB CHEMISTRY METHOD 08/07/2024 6:16 PM [facility] Albumin 3.8 3.2 - 5.0 g/dL LAB CHEMISTRY METHOD 08/07/2024 6:16 PM EDT [facility] Total Bilirubin 0.3 0.0 - 1.4 mg/dL LAB CHEMISTRY METHOD 08/07/2024 6:16 PM EDT [facility] Blood Venous blood specimen / Unknown Venipuncture / Unknown 08/07/2024 3:26 PM EDT 08/07/2024 3:26 PM EDT Tana Woodward NP LAB BLOOD ORDERABLES Ludmila landa Result [facility] [address] [place] [address], * SCREENING MAMMOGRAPHY BI 2-VIEW BREAST INC [...] category Breast cancer risk not assessed Result [facility] Latoya Grimes Sidney DO IMG XR PROCEDURES Final Resul t * Cervical Cancer Screening: HPV (11/15/2022) [facility] Cervical Cancer Screening: HPV Negative, Abstracted Result [facility] Provider HEALTH MAINTENANCE Final Result * (ABNORMAL) Lipid panel (09/14/2021) [facility] LDL/HDL Ratio 4 0 - 4 Triglycerides 114 0 - 150 mg/dL Cholesterol 219(A) 0 - 200 mg/dL HDL 57 >=40 mg/dL LDL Cholesterol 140(A) 0 - 100 mg/dL Blood Venous blood specimen / Unknown Result [facility] Provider LAB BLOOD ORDERABLES Ludmila l Result * HIV Screening (06/27/2011) [facility] HIV Screening Abstracted Result [facility] Provider HEALTH MAINTENANCE Final Result * Hepatitis C Screening (06/27/2011) [facility] Hepatitis C Screening Abstracted Result [facility] Provider HEALTH MAINTENANCE Final Result from Last 3 Months or Most Recently Relevant to Health Maintenance Insurance MEDICARE [place] [employer] Member Subscriber Plan / Payer (Ef fective 2023-Present) Name:Noman David Relation to Subscriber:Self Name:Noman David Payer ID:[id number] Group ID:Not on file Type:Not on file Address: [address] ATTN CLAIMS [place], [place] Care Teams Elementary Educator Relationship Specialty Start Date End Date Farzana Garrett MD [address] [place] [id number] PCP - General Internal Medicine 10/25/20
== END 2024-12-17 11:02 | disposition home or self-care (01) ==
LOC: HO.HSM 10:08
PROVIDERS: PCP Pediatrics; Visit Provider Registered Nurse
DX: G43.909 Migraine, unspecified, not intractable, without status migrainosus (principal); M79.7 Fibromyalgia; R90.82 White matter disease, unspecified; R25.1 Tremor, unspecified; G47.00 Insomnia, unspecified; R42 Dizziness and giddiness; H93.19 Tinnitus, unspecified ear; F41.9 Anxiety disorder, unspecified; R55 Syncope and collapse
CPT/HCPCS: 99214

== ENCOUNTER → 2024-12-17 10:08 | Outpatient (BNVA) | payer MEDICARE, MEDICAID, SELFPAY | PROVIDERS: PCP Pediatrics; Visit Provider Registered Nurse | DX: M79.7 Fibromyalgia (principal); R42 Dizziness and giddiness; G43.909 Migraine, unspecified, not intractable, without status migrainosus; R25.1 Tremor, unspecified; R55 Syncope and collapse; F41.9 Anxiety disorder, unspecified; R90.82 White matter disease, unspecified | CPT/HCPCS: 99212 ==